=== PATIENT | female | born 1995 | race Caucasian/White ===

== ENCOUNTER → 2021-05-02 14:10 | Observation (INO) ==
[2021-05-02 11:40] LABS: Bacteria,Urine Few per hpf (None-Few); Bilirubin,Urine Negative (Negative); Blood,Urine Negative (Negative); Clarity,Urine Turbid (Clear); Color,Urine Light-Yellow (Yellow); Glucose,Urine (UA) Normal (Normal); Ketones,Urine 20 mg/dL (Negative); Leukocyte Esterase,Urine Small (Negative); Mucus,Urine Few per lpf (None-Few); Nitrite,Urine Negative (Negative); PH,Urine 6.5 pH Units (5.0-8.0); Protein,Urine Negative (Neg-Trace); RBC,Urine 0-3 per hpf (0-3); Renal Epithelial Cells,Urine Few per hpf (None-Few); Specific Gravity,Urine 1.023 (1.010-1.025); Squamous Epithelial Cell,Urine Moderate per hpf (None-Few); Transitional Epi Cells,Urine Few per hpf (None-Few); Urobilinogen,Urine Normal (Normal)
[2021-05-02 13:40] LABS: Basophils % 0.3 %; Eosinophils % 0.2 %; Hematocrit 38.8 % (35.3-44.9); Hemoglobin 13.4 g/dL (11.5-15.4); Immature Granulocytes % 0.4 % (0-4); Lymphocytes # 0.5 K/mcL (0.6-4.6); Mean Corpuscular HGB Conc 34.5 g/dL (31.6-35.5); Mean Corpuscular Hemoglobin 32.1 pg (28.0-33.3); Mean Corpuscular Volume 92.8 fL (83.0-100.0); Mean Platelet Volume 9.6 fL (9.4-12.4); Monocytes # 0.4 K/mcL (0.0-1.3); Monocytes % 3.4 %; Neutrophils # 10.4 K/mcL (1.6-8.9); Platelet Count 197 K/mcL (140-400); Red Blood Count 4.18 M/mcL (3.82-4.97); Red Cell Distribution Width 12.5 % (11.5-14.5); Segmented Neutrophils % 91.7 %; White Blood Count 11.3 K/mcL (4.3-11.1)
[2021-05-02 13:50] LABS: Potassium 3.7 mEq/L (3.5-5.1)
[~2021-05-02 14:10] MED LIST: 0.9 % Sodium Chloride 1,000 ML IVC SCH; Ondansetron 8 MG in 0.9 % Sodium Chloride 50 ML IVPB ONE
== END | disposition home or self-care (01) ==
LOC: 1NENULAB
PROVIDERS: ADMIT Registered Nurse; ATTEND Registered Nurse

== ENCOUNTER 2021-08-27 08:07 | Inpatient (IN) ==
[~2021-08-27 08:07] MED LIST changes: +*HR* Nalbuphine 10 MG/ML AMPUL IV PRN; -0.9 % Sodium Chloride 1,000 ML IVC SCH; +Famotidine 20 MG/2 ML VIAL IVP PRN; +Metoclopramide 10 MG/2 ML VIAL IVP PRN; +Naloxone 0.4 MG/ML INJ IVP PRN; +Ondansetron 4 MG/2 ML VIAL IVP PRN; -Ondansetron 8 MG in 0.9 % Sodium Chloride 50 ML IVPB ONE
[2021-08-27] MEDS ORDERED: Ringers Solution, Lactated 1,000 ML IVC SCH (08:15)
[2021-08-27] MEDS ORDERED: EPHEDrine 50 MG/ML VIAL IVP PRN (08:39)
[2021-08-27] MEDS ORDERED: Epidural Premix (fent/bupiv) 110 ML EP SCH (08:45)
[2021-08-27 09:59] LABS: Basophils % 0.2 %; Eosinophils # 0.1 K/mcL (0.0-0.6); Eosinophils % 0.4 %; Hematocrit 41.3 % (35.3-44.9); Immature Granulocytes % 0.3 % (0-4); Lymphocytes # 1.8 K/mcL (0.6-4.6); Mean Corpuscular HGB Conc 33.9 g/dL (31.6-35.5); Mean Corpuscular Volume 91.4 fL (83.0-100.0); Mean Platelet Volume 10.7 fL (9.4-12.4); Monocytes # 0.9 K/mcL (0.0-1.3); Monocytes % 7.2 %; Neutrophils # 9.3 K/mcL (1.6-8.9); Platelet Count 172 K/mcL (140-400); Red Blood Count 4.52 M/mcL (3.82-4.97); Red Cell Distribution Width 12.7 % (11.5-14.5); Segmented Neutrophils % 76.9 %; White Blood Count 12.2 K/mcL (4.3-11.1)
[2021-08-27 10:11] LABS: Amphetamine Screen,Urine Negative ng/mL (Cutoff=1000); Barbiturate Screen,Urine Negative ng/mL (Cutoff=200); Benzodiazepines Screen,Urine Negative ng/mL (Cutoff=200); Cannabinoid Screen,Urine Negative ng/mL (Cutoff = 50); Cocaine Screen,Urine Negative ng/mL (Cutoff= 300); Opiate Screen,Urine Negative ng/mL (Cutoff=300); Phencyclidine Screen,Urine Negative ng/mL (Cutoff=25)
[2021-08-27] MEDS ORDERED: Oxytocin 20 units/ LR 1000 mL 20 UNIT/1,000 ML BAG IVC ONE (11:29)
[2021-08-27] MEDS ORDERED: Lidocaine 1% 20 ML MDV ONE ×2 (11:33→12:16)
[2021-08-27] MEDS ORDERED: *HR* FentaNYL (PF) 100 MCG/2 ML VIAL IVP ONE (12:05)
[2021-08-27] MEDS ORDERED: Lidocaine/EPI 1:200k 2% PF 20 ML VIAL INFILT ONE (12:22)
[2021-08-27] MEDS ORDERED: Lidocaine/EPI 1:100k 1% 20 ML VIAL INFILT ONE (12:33)
[2021-08-27] MEDS ORDERED: Lidocaine/EPI 1:200k 1% PF 10 ML VIAL INFILT ONE (12:33)
[2021-08-27] MEDS ORDERED: *HR* Labetalol 20 MG/4 ML SYRINGE IVP ONE ×2 (12:38→12:39)
[2021-08-27] MEDS ORDERED: Ibuprofen 400 MG TABLET PO ONE (12:50)
[2021-08-27] MEDS ORDERED: *HR* OxyCODONE/APAP 5/325 TABLET PO ONE (13:02)
[2021-08-27 13:39] LABS: Alanine Aminotransferase 42 Units/L (7-52); Aspartate Amino Transferase 37 Units/L (13-39); BUN/Creatinine Ratio 18 (6-26); Blood Urea Nitrogen 14 mg/dL (6-20); Lactate Dehydrogenase 226 Units/L (140-271); Uric Acid 6.8 mg/dL (2.3-7.6); eGFR For African Americans > 60 (> 60); eGFR For Non-African Americans > 60 (> 60)
[2021-08-27 14:56] LABS: Influenza A PCR Negative (Negative); Influenza B PCR Negative (Negative); Resp. Syncytial Virus PCR Negative (Negative); SARS-CoV-2 by PCR (In House) Negative (Negative)
[2021-08-27 15:59] LABS: Creatinine,Urine 224 mg/dL; Protein/Creatinine Ratio,Urine 3.44 mg/mg (0.00-0.20)
[2021-08-27] MEDS ORDERED: Lanolin 7 G OINT...G. TP PRN (16:12)
[2021-08-27] MEDS ORDERED: Rho Immune Globulin 1,500 UNIT SYRINGE IM PRN (16:12)
[2021-08-27] MEDS ORDERED: Ondansetron ODT 4 MG TAB.RAPDIS SL PRN (16:12)
[2021-08-27] MEDS ORDERED: Measles/Mumps/Rubella Vacc 0.5 ML VIAL SQ PRN (16:12)
[2021-08-27] MEDS ORDERED: Oxytocin 20 units/ LR 1000 mL 20 UNIT/1,000 ML BAG IVC SCH (16:15)
[2021-08-27] MEDS: *HR* OxyCODONE/APAP 5/325 TABLET PO PRN (16:56)
[2021-08-27] MEDS: Benzocaine/Menthol 56 GM AEROSOL SPRAY TP PRN (16:59)
[2021-08-27] MEDS: Acetaminophen 325 MG TABLET PO SCH (22:01)
[2021-08-27] MEDS: Ibuprofen 600 MG TABLET PO SCH (22:02)
[2021-08-28] MEDS: *HR* OxyCODONE/APAP 5/325 TABLET PO PRN ×2 (02:13→17:31)
[2021-08-28] MEDS: Ibuprofen 600 MG TABLET PO SCH ×3 (05:53→18:07)
[2021-08-28] MEDS: Acetaminophen 325 MG TABLET PO SCH ×3 (05:54→18:07)
[2021-08-28] MEDS: Prenatal Vit/FA 1 EACH TABLET PO SCH (08:13)
[2021-08-28 09:39] LABS: Basophils % 0.2 %; Eosinophils # 0.1 K/mcL (0.0-0.6); Eosinophils % 0.5 %; Hematocrit 28.1 % (35.3-44.9); Immature Granulocytes % 0.5 % (0-4); Lymphocytes # 2.6 K/mcL (0.6-4.6); Lymphocytes % 18.7 %; Mean Corpuscular HGB Conc 32.7 g/dL (31.6-35.5); Mean Corpuscular Hemoglobin 30.4 pg (28.0-33.3); Mean Corpuscular Volume 92.7 fL (83.0-100.0); Mean Platelet Volume 10.3 fL (9.4-12.4); Monocytes % 6.8 %; Neutrophils # 10.4 K/mcL (1.6-8.9); Platelet Count 153 K/mcL (140-400); Red Blood Count 3.03 M/mcL (3.82-4.97); Segmented Neutrophils % 73.3 %; White Blood Count 14.1 K/mcL (4.3-11.1)
[2021-08-28 09:42] LABS: Hemoglobin 9.2 g/dL (11.5-15.4)
[2021-08-28] MEDS: Benzocaine/Menthol 56 GM AEROSOL SPRAY TP PRN (11:53)
[2021-08-29] MEDS: Ibuprofen 600 MG TABLET PO SCH ×3 (00:08→12:11)
[2021-08-29] MEDS: Acetaminophen 325 MG TABLET PO SCH ×3 (00:09→12:11)
[2021-08-29] MEDS: *HR* OxyCODONE/APAP 5/325 TABLET PO PRN (05:57)
[2021-08-29] MEDS: Prenatal Vit/FA 1 EACH TABLET PO SCH (07:34)
[2021-08-29] MEDS ORDERED: FLU Vac QV 21-22 (6Month+)/PF 0.5 ML SYRINGE IM ONE (08:06)
[2021-08-29 08:09] VITALS: BP 137/88; PULSE 79; TEMP 98.5; O2SAT 96
== END 2021-08-29 15:30 | disposition home or self-care (01) | DRG 768 ==
LOC: 1NENULAB → 1NENUOBS 15:07
PROVIDERS: ADMIT Advanced Practice Midwife; ATTEND Advanced Practice Midwife